=== PATIENT | female | born 1975 | race Two or more races ===

== ENCOUNTER 2018-01-02 17:43 | Emergency (ER) | payer OTHER ==
[~2018-01-02] VITALS: Ht 162.6 cm; Wt 76.2 kg
== END 2018-01-02 20:38 | disposition home or self-care (01) ==
LOC: ER 17:43
DX: D25.9 Leiomyoma of uterus, unspecified (principal); N83.02 Follicular cyst of left ovary; N83.01 Follicular cyst of right ovary

== ENCOUNTER 2018-04-01 15:34 | Emergency (ER) | payer OTHER ==
[~2018-04-01] VITALS: Ht 162.6 cm; Wt 76.2 kg
== END 2018-04-01 18:19 | disposition home or self-care (01) ==
LOC: ER 15:34
DX: J11.1 Influenza due to unidentified influenza virus with other respiratory manifestations (principal); J06.9 Acute upper respiratory infection, unspecified

== ENCOUNTER 2019-09-17 10:20 | Emergency (ER) | payer OTHER ==
[~2019-09-17] VITALS: Ht 162.6 cm; Wt 81.6 kg
[~2019-09-17 10:20] MED LIST: SYNTHROID125 MCG
[2019-09-17] MEDS ORDERED: SYNTHROID50 MCG PO (10:37)
== END 2019-09-17 14:59 | disposition home or self-care (01) ==
LOC: ER 10:20
DX: M79.662 Pain in left lower leg (principal)

== ENCOUNTER 2021-03-27 09:54 | Outpatient (CLI) | payer OTHER ==
[~2021-03-27 09:54] MED LIST changes: +SYNTHROID50 MCG PO
== END 2021-03-27 10:22 | disposition home or self-care (01) ==
LOC: MRI 09:54
DX: M84.362A Stress fracture, left tibia, initial encounter for fracture (principal)
CPT/HCPCS: 73721

== ENCOUNTER 2021-07-30 09:13 | Outpatient (CLI) | payer OTHER | END 2021-07-30 09:14 | disposition home or self-care (01) | LOC: NUCLEAR 09:13 | PROVIDERS: ATTEND Orthopaedic Surgery | DX: I82.402 Acute embolism and thrombosis of unspecified deep veins of left lower extremity (principal) ==

== ENCOUNTER 2024-07-08 07:46 | Emergency (ER) | payer OTHER ==
[~2024-07-08] VITALS: Ht 162.6 cm; Wt 88.5 kg
[2024-07-08] MEDS ORDERED: AZITHROMYCIN 500 MG TABLET PO ONE (09:00)
[2024-07-08] MEDS ORDERED: DEXAMETHASONE SODIUM PHOSPHATE 4 MG/ML VIAL IM ONE (09:00)
[2024-07-08] MEDS ORDERED: GUAIFENESIN/DEXTROMETHORPHAN 10ML BLIST.PACK PO ONE (09:00)
[2024-07-08 09:45] LABS: HEMATOCRIT 32.1 % (36.0-45.00); MEAN CORPUSCULAR HGB CONC 31.3 g/dl (32.0-36.0); PLATELET COUNT 330 K/uL (150-450); RED BLOOD COUNT 4.82 M/uL (4.00-6.00)
[2024-07-08 09:47] LABS: MEAN CELL VOLUME 66.5 fL (80.00-100.00); MEAN CORPUSCULAR HEMOGLOBIN 20.7 pg (27.00-32.0); RED CELL DISTRIBUTION WIDTH 19.1 % (11.5-14.5)
[2024-07-08] MEDS ORDERED: XOPENEX CO1.25 MG/0. IH (10:28)
[2024-07-08] MEDS ORDERED: ZITHROMAX500 MG PO (10:28)
[2024-07-08] MEDS ORDERED: TUSNEL LIQUID178 ML PO (10:28)
== END 2024-07-08 10:41 | disposition home or self-care (01) ==
LOC: ER 07:46
PROVIDERS: General Practice
DX: R53.81 Other malaise (principal); J06.9 Acute upper respiratory infection, unspecified; Z20.822 Contact with and (suspected) exposure to COVID-19; E03.8 Other specified hypothyroidism